=== PATIENT | male | born 2000 | race Caucasian/White ===

== ENCOUNTER 2021-04-23 18:33 | Emergency (ER) | payer BC ==
[2021-04-23] MEDS ORDERED: Orphenadrine 60 MG/2 ML Inj IM STA (18:50)
[2021-04-23] MEDS ORDERED: Ketorolac 30 MG/ML SDV IM ONE (18:50)
--- NOTE | 2021-04-23 19:45 | EDM.PDOC ---
ED HPI GENERAL MEDICAL PROBLEM - General Stated Complaint: INJURY R KNEE Time Seen by Provider: 04/23/21 19:20 Source of Information: Reports: Patient History Limitations: Reports: No Limitations - History of Present Illness INITIAL COMMENTS - FREE TEXT/NARRATIVE: Patient comes emergency department today from football where he has concerns of a right knee injury. Just prior to arrival the patient was playing football when he planted his right foot and twisted at the knee and he felt a sudden pop or tear sensation to his right knee. He is unable to stand up on it as he relates that it does not hold him up. He had a knee immobilizer placed prior to arrival and was on crutches. He does not take anything for pain. He denies any other injury other than to his right leg primarily his knee. He denies any paresthesia of the right lower extremity. - Related Data Allergies Allergy/AdvReac Type Severity Reaction Status Date / Time Penicillins Allergy Cannot Verified 04/23/21 21:23 Remember Home Meds: Home Meds . [No Known Home Meds] 04/23/21 [History] Review of Systems - Review of Systems Review Of Systems: Comprehensive ROS is negative, except as noted in HPI. ED EXAM, GENERAL - Physical Exam Exam: See Below Exam Limited By: No Limitations General Appearance: Alert, WD/WN, No Apparent Distress Respiratory/Chest: No Respiratory Distress Cardiovascular: Normal Peripheral Pulses, Regular Rate, Rhythm Peripheral Pulses: 2+: Popliteal (L), Popliteal (R), Posterior Tibial (L), Posterior Tibial (R), Dorsalis Pedis (L), Dorsalis Pedis (R) Back Exam: Normal Inspection Extremities: No Pedal Edema, Normal Capillary Refill. No: Normal Inspection (He has some mild swelling around the base of the patella. There is no overt bony deformity. Negative anterior drawer and Kenan sign. Negative varus and valgus stress. No laxity of the joint. There is some crepitus with flexion and extension. Rest of the right lower extremity is unremarkable.) Neurological: Alert, Oriented, No Motor/Sensory Deficits Psychiatric: Normal Affect, Normal Mood Skin Exam: Warm, Dry, Intact, Normal Color, No Rash Course - Orders/Labs/Meds Orders: Active Orders 24 hr Category Date Time Status DME for Discharge [COMM] Stat Oth 04/23/21 19:47 Ordered DME for Discharge [COMM] Stat Oth 04/23/21 19:48 Ordered Meds: Medications Discontinued Medications Generic Name Dose Route Start Last Admin Trade Name Alfred PRN Reason Stop Dose Admin Ketorolac Tromethamine 30 mg 04/23/21 18:50 Ketorolac 30 Mg/Ml Sdv IM 04/23/21 18:51 ONETIME ONE Orphenadrine Citrate 60 mg 04/23/21 18:50 Orphenadrine 60 Mg/2 Ml Inj IM 04/23/21 18:51 NOW STA - Radiology Interpretation Free Text/Narrative:: X-ray of the right knee initially reviewed extemporaneously by myself. Shows no overt bony deformity or dislocation. Question joint effusion. X-ray per radiology shows small joint effusion no acute fracture or other bony abnormality per radiology. - Re-Assessments/Exams Free Text/Narrative Re-Assessment/Exam: X-ray of the right knee is unremarkable. PT did not want anything for pain. I reviewed the negative x-ray with the patient other than the small joint effusion. I relayed that the bones appear normal. Although with the type of mechanism injury its not uncommon to have some type of soft tissue or ligament d amage. Treatment of choice at this time is to place him in a knee immobilizer and crutches. Follow-up with orthopedics in a week if he is not improving. Discharge directions as below are explained to the patient is comfortable this plan his questions were answered. Departure - Departure Time of Disposition: 19:40 Disposition: Home, Self-Care 01 Clinical Impression: Strain of knee and leg, right Qualifiers: Encounter type: initial encounter Qualified Code(s): S86.911A - Strain of unspecified muscle(s) and tendon(s) at lower leg level, right leg, initial encounter - Discharge Information Instructions: RICE Therapy for Routine Care of Injuries, [id number], Muscle Strain, [id number] Referrals: PCP,Not In Area [Primary Care Provider] - Additional Instructions: Knee immobilizer at all times. Crutches weight bearing with no pain. Tylenol and or Ibuprofen as needed for pain. RICE therapy as per discharge instructions. Return to the ED if new or worsening symptoms. Follow up with Ortho in 1 week for recheck. - My Orders Last 24 Hours: My Active Orders 04/23/21 19:47 DME for Discharge [COMM] Stat 04/23/21 19:48 DME for Discharge [COMM] Stat - Assessment/Plan Last 24 Hours: My Active Orders 04/23/21 19:47 DME for Discharge [COMM] Stat 04/23/21 19:48 DME for Discharge [COMM] Stat
--- NOTE | 2021-04-23 20:01 | CR ---
[id number] RAD/RAD Knee Right 4V EXAM: RAD Knee Right 4V INDICATION: FOOTBALL INJURY COMPARISON: None. DISCUSSION: Possible small joint effusion. No acute fracture or dislocation is identified. IMPRESSION: 1. Small joint effusion. Chilo Alvarado MD 04/23/211999 Thank you for allowing us to participate in the care of your patient.
== END 2021-04-23 20:27 | disposition home or self-care (01) ==
LOC: VM.ED 18:33
DX: S86.911A Strain of unspecified muscle(s) and tendon(s) at lower leg level, right leg, initial encounter (principal); Z88.0 Allergy status to penicillin; X50.1XXA Overexertion from prolonged static or awkward postures, initial encounter; Y93.61 Activity, american tackle football
CPT/HCPCS: 73564-RT; 99283; 99283-25